=== PATIENT | female | born 1965 | race Caucasian/White ===

== ENCOUNTER 2025-02-01 19:47 | Emergency (ER) | payer BC, SELFPAY ==
[2025-02-01 19:52] VITALS: BP 187/93
[2025-02-01 20:17] LABS: Hematocrit 40.7 % (37.0-47.0); Hemoglobin 13.6 g/dL (12.0-16.0); Mean Corp Hgb Conc. 33.4 g/dL (33.0-37.0); Mean Corpuscular Volume 89.8 fL (81.0-99.0); Nucleated Red Blood Cells % 0 %; Platelet Count 311 10^3/uL (130-400); Red Cell Dist. Width 12.2 % (11.5-14.5)
[2025-02-01 20:36] LABS: ALT (SGPT) 24 U/L (0-35); AST (SGOT) 21 U/L (14-36); Albumin 4.9 g/dl (3.5-5.0); Alkaline Phosphatase 73 U/L (38-126); Blood Urea Nitrogen 14 mg/dl (7-17); Calcium 10.2 mg/dl (8.4-10.2); Carbon Dioxide 29 mmol/L (22-30); Chloride 104 mmol/L (98-107); Glucose 136 mg/dl (70-99); Potassium 4.0 mmol/L (3.5-5.1); Sodium 140 mmol/L (135-145); Total Protein 7.9 g/dl (6.3-8.2); eGFR > 60.00
[2025-02-01 20:43] LABS: Troponin I < 0.012 ng/ml
[2025-02-01 21:33] VITALS: BP 154/81
[2025-02-01 21:46] VITALS: BMI 27.1
[2025-02-01 22:01] VITALS: BP 155/94
[2025-02-01 22:31] VITALS: BP 162/94
[2025-02-01 23:00] VITALS: BP 165/100
[2025-02-01 23:19] LABS: Troponin I < 0.012 ng/ml
--- NOTE | 2025-02-01 23:23 | ED.GENMED ---
History of Present Illness
General
Chief Complaint: Chest Pain
Source: patient and ambulance crew
Exam Limitations: none
Time Seen by Provider: 02/01/25 22:35
Nursing documentation reviewed up to this point in time: agreed with
History of Present Illness
History of Present Illness:
This is a 59-year-old woman who presents via EMS with chest pain and left arm pain. The symptoms began while she was at work at [employer]. She works at the front line supervisor. She states discomfort began left lateral neck, left upper arm/shoulder and
then radiated to mid to upper substernal region. She reports having very similar episode 6 to 7 months ago, again while at work, also associated with significantly elevated blood pressure. At that time 7 months ago she was taken by ambulance to
[facility] where she states she waited 4 hours in the waiting room. Blood pressure was elevated 190 systolic and then rechecked 200 systolic. Due to exorbitant wait time, patient left AMA. She then followed up with her PCP and was noted to
have elevated blood pressure at her primary care office and was started on amlodipine but discontinued this due to onset of headaches. She has since changed her diet and states her blood pressure has improved with home readings 130s to 140s
systolic. She does however note that blood pressure remains elevated with last visit to her primary care physician perhaps 4 months ago with systolic at 160. She also notes that her primary care physician has recommended she start an
antihypertensive medication but patient is reluctant to do so.
She currently takes no medicines on a daily basis.
With current episode of left arm discomfort, substernal chest pain she admits to mild nausea, no shortness of breath, no diaphoresis, no palpitations, no dizziness nor lightheadedness. No back pain.
She arrived via EMS. Blood pressure reportedly 185 prehospital. She received 324 mg chewable aspirin as well as 2 sublingual nitroglycerin. Blood pressure improved but no change in chest pain as per patient.
She admits to experiencing frequent headaches recently, predominantly on the left side. No weakness or numbness. Mild nasal congestion and occasional ringing in her left ear but no ear pain nor crackling nor loss of hearing. No vision difficulty.
No recent travel. No leg pain or swelling.
Past History
Past History
ED Past Medical History: HTN
ED Past Surgical History: Gynecological (Hysterectomy)
Social History
Tobacco: Non-smoker
Alcohol: Occasional
Drug: None
Living: with family
Employment: Employed (Works 2 jobs. 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
Family History
Family History: Hypertension (Mother) and CAD (Mother with history of CAD reported SD in her 30s. She is currently in her 80s, alive and well)
Phy Exam
Physical Exam
Physical Exam:
GENERAL: 59-year-old woman appears her stated age, bright alert, pleasant, appears in no acute distress. Easily communicative.
EYE: pupils equal and reactive. anicteric
NECK: Supple, minimal tenderness left lateral paracervical musculature, no meningismus, no significant adenopathy. Full range of motion without difficulty. No JVD. No bruit.
ENT: posterior pharynx is clear, oral mucosa is moist. Scant clear effusion within the left TM otherwise without redness, right TM is clear. Nares have moderately boggy pale blue turbinates.
CARDIAC: Regular rate and rhythm. no murmur. No rub. No palpable chest wall tenderness.
LUNGS: Clear breath sounds bilaterally, no acute respiratory distress, no wheezes/rales/rhonchi
ABDOMEN: Soft, nondistended, without focal tenderness, no r/g, no cvat. normoactive BS.
NEUROLOGICAL: Alert and oriented x3, no focal neuro deficits.
SKIN: Warm and dry, normal color, skin intact. No rash.
MUSCULOSKELETAL: No C/C/E. peripheral pulses are full and equal b/l. No palpable tenderness.
PSYCH: Normal and appropriate interaction.
Scores
Heart Score for Chest Pain Patients
STEMI patient?: No
History: Slightly or Non-Suspicious
ECG: Normal
Age: >45 - <65 years
Risk Factors: 1 or 2 Risk Factors
Troponin: </= Normal Limit
Heart Score for Chest Pain Patients: 2
Heart Score Risk: 2.5% MACE over next 6 weeks
Course
Orders/Labs/Results
Orders:
Orders
02/01/25 19:49
Electrocardiogram (*1) Urgent
Reason for Study: Chest Pain
02/01/25 19:50
EKG- Treatment ONCE
CR Chest - 2 Views Urgent
Comment:
Reason For Exam: chest pain
02/01/25 20:04
Complete Blood Count/With Diff Urgent
Comprehensive Metabolic Panel Urgent
Troponin I Urgent
02/01/25 22:32
Electrocardiogram (*1) Urgent
Reason for Study: Chest Pain
EKG- Treatment ONCE
02/01/25 22:47
Troponin I Urgent
02/01/25 23:22
Acetaminophen 1000MG/100Ml [Ofirmev] 1,000 mg in 100 ml IV ONCE
Acetaminophen IV Indication:: ED Narcotic Naive Pt-ONCE
Metoprolol [Lopressor] 5 mg IV NOW STA
Abnormal Lab Results
02/01/25
20:04
Glucose 136 H mg/dl
(70-99)
02/01/25 20:04
02/01/25 20:04
Vital Signs
Initial and Last Documented VS:
Initial Vital Signs
Temp Pulse Resp BP Pulse Ox
97.9 F 88 16 187/93 100
02/01/25 19:52 02/01/25 19:52 02/01/25 19:52 02/01/25 19:52 02/01/25 19:52
Last Documented Vital Signs
Temp Pulse Resp BP Pulse Ox
97.9 F 68 23 155/95 96
02/01/25 19:52 02/02/25 00:54 02/02/25 00:54 02/02/25 00:00 02/02/25 00:54
MDM/Problems Addressed
Differential Diagnosis Includes:
Differential diagnosis includes, in no particular order and is not limited to:
Acute coronary syndrome
Hypertensive crisis
Musculoskeletal pain i.e. costochondritis
Pericarditis
Aortic dissection
GERD
PE
Anxiety
Cervical radiculopathy
Myocarditis
MDM/Problems Addressed:
Acute chest pain/left arm pain
Accelerated hypertension
Frequent headaches
Patient with known history of hypertension, baseline home blood pressure monitoring remains somewhat elevated and not at goal. Thus far patient has been resistant to initiating antihypertensive medication.
Prehospital EKG unremarkable and initial EKG upon arrival unremarkable.
Initial labs are reassuring, within normal limits save for random glucose 136. Troponin is negative.
Chest x-ray is unremarkable, clear lung king, normal heart size, normal mediastinum.
Patient is overall well in appearance.
She is noted to have allergic rhinitis and left serous otitis media which could certainly account for headache. No focal neurodeficits. Admits to somewhat frequent headaches and currently improved. At this point no indication for CT.
Will plan to repeat EKG and repeat troponin.
Blood pressure currently 160/100. Appears to be at her baseline at least during PCP visits. Will give an IV dose of metoprolol and will give an IV dose of Tylenol for headache.
Lengthy discussion with patient regarding hypertension and strongly recommend initiation of an antihypertensive medication.
If troponin returns negative we will plan for discharge to home but with history of hypertension, strong family history of CAD patient will require follow-up with cardiology.
Chronic conditions affecting care: HTN
*Radiology
Radiology exam reviewed: preliminary read by ED provider (Chest x-ray is unremarkable. Clear lung king. Normal heart size. Normal mediastinum)
*Pulse Oximetry
SaO2: 98
Oxygen Mode of Delivery: Room air
Patient hypoxic: no
*EKG
Interpreted by ED Provider?: Yes
Interpretation: normal
Comparison EKG: no comparison EKG present
Rate: normal
Rhythm: sinus
[place]: normal axis
Interval: normal interval
QRS Pattern: normal QRS
Ischemia: no ischemia
*[employer] Interpretation
Rate: normal
Interpretation: normal
Rhythm: sinus
*Critical Care Note
Total Time (30-74mins, 75-104mins- exclusive of procedures): Not Applicable
Update Note
Update Note:
00:30
Patient feeling improved. Headache has resolved.
Blood pressure improving.
Repeat troponin remains negative.
Repeat EKG stable and unchanged, unremarkable.
Patient agreeable to initiation of antihypertensive medication and recommend we start a low-dose lisinopril 10 mg daily.
Recommend prompt follow-up with PCP and patient will be referred to our chest pain hotline as well.
Return precautions discussed.
ED Attending Note
-
Portions of this chart may have been created with voice recognition software.� Occasional wrong word or��sound alike� substitutions may have occurred due to the inherent limitations of voice recognition software.
Discharge Plan
Departure
Patient Disposition: Home (Routine Discharge)
Date of Disposition: 02/02/25
Time of Disposition: 00:36
Patient with high blood pressure during this ER visit?: Yes
Condition: Good
Discharge Problem:
Nonspecific chest pain, Accelerated essential hypertension
Instructions: High blood pressure in adults, Chest Pain DCA Follow Up
Prescriptions:
New
lisinopril 10 mg tablet
10 mg PO DAILY Qty: 30 1RF
Referrals:
Dominick Franco, [Family Provider] - Call in 1-3 days for appt
Interventions
Interventions:
*Risk Screen - Suicide Last Done: 02/01/25 19:52
*General Assessment Last Done: 02/01/25 19:52
*Neglect/Abuse Screening Last Done: 02/01/25 19:52
*ED- Fall Risk Assessment Last Done: 02/01/25 21:47
*ED COVID-19 Vaccine History Last Done: 02/01/25 21:47
*ED Influenza Vaccine History Last Done: 02/01/25 21:47
*Nursing Disposition Last Done: 02/02/25 01:12
ED- Cardiac Assessment Last Done: 02/01/25 22:34
Discharge Date and Time
Discharge Date/Time: 02/02/25 00:45
Print Language: [place]INGAP[place]
[2025-02-01 23:39] VITALS: BP 166/105
[2025-02-01] MEDS: LOPRESSOR 5 MG IV (23:39)
[2025-02-01] MEDS: OFIRMEV 100 IV (23:39)
[2025-02-02] VITALS: BP 155/95
== END 2025-02-02 00:45 | disposition home or self-care (01) ==
LOC: EMR 19:47
PROVIDERS: Emergency Medicine; EMERGENCY PHYSICIAN Emergency Medicine; FAMILY PHYSICIAN Family Medicine
DX: R07.9 Chest pain, unspecified (principal); I10 Essential (primary) hypertension; Z82.49 Family history of ischemic heart disease and other diseases of the circulatory system
CPT/HCPCS: 99284; 96374; 96375; 71046; 80053; 84484; 85025; 93005